=== PATIENT | male | born 1970 | race Caucasian/White ===

== ENCOUNTER 2021-08-13 16:01 | Emergency (ER) | payer OTHER, BC ==
[~2021-08-13] VITALS: Ht 180.3 cm; Wt 68.0 kg
[2021-08-13] MEDS ORDERED: ATORVASTATIN CA20 MG PO (17:17)
[2021-08-13] MEDS ORDERED: ZOLOFT 50 MG TA50 MG PO (17:17)
[2021-08-13 17:21] LABS: ABSOLUTE NEUTROPHILS 4.3 thou/uL (1.4-8.2); BASOPHILS 0.9 % (0.0-2.0); EOSINOPHILS 0.4 % (0.0-3.0); HEMATOCRIT 42.5 % (42.0-52.0); HEMOGLOBIN 14.8 gm/dL (14.0-18.0); LYMPHOCYTES 19.7 % (24.0-44.0); MCH 29.1 pg (26.0-34.0); MCHC 34.7 g/dL (28.0-37.0); MCV 83.8 fL (80.0-100.0); MONOCYTES 19.9 % (1.0-8.0); PLATELET COUNT 235 thou/uL (150-400); POLYS 59.1 % (36.0-66.0); RBC 5.07 mil/uL (4.50-6.00); RDW 12.8 % (10.5-14.5); WBC 7.2 thou/uL (4.0-11.0)
[2021-08-13 17:32] LABS: CALCIUM 9.1 mg/dL (8.5-10.1); CREATININE 1.2 mg/dL (0.7-1.3); POTASSIUM 4.1 mmol/L (3.5-5.1)
[2021-08-13 20:25] VITALS: BP 114/73
== END 2021-08-13 20:27 | disposition short-term general hospital (02) ==
LOC: ER 16:01
PROVIDERS: Emergency Medicine
DX: B02.39 Other herpes zoster eye disease (principal); Z20.822 Contact with and (suspected) exposure to COVID-19; Z79.899 Other long term (current) drug therapy